=== PATIENT | male | born 1940 | race Caucasian/White ===

== ENCOUNTER 2019-03-30 10:18 | Outpatient (CLI) | payer MEDICARE ==
[2019-05-03] MEDS ORDERED: ENAL2.5T PO (13:06)
[2019-05-03] MEDS ORDERED: CALC1CAP8 PO (13:06)
[2019-05-03] MEDS ORDERED: ATOR40TA78 PO (13:06)
[2019-05-03] MEDS ORDERED: ASPI-650 PO (13:06)
[2019-05-03] MEDS ORDERED: FERR-46 PO (13:06)
[2019-05-03] MEDS ORDERED: DONE10TA7 PO (13:06)
[2019-06-01] MEDS ORDERED: ASPI81TA45 PO (10:58)
[2019-06-01] MEDS ORDERED: CLOP75TA PO (10:58)
[2019-06-01] MEDS ORDERED: ACET325T26 PO (10:58)
== END 2019-03-30 23:59 | disposition home or self-care (01) ==
LOC: CFH 10:18
DX: I08.8 Other rheumatic multiple valve diseases (principal); I11.9 Hypertensive heart disease without heart failure; E78.5 Hyperlipidemia, unspecified
CPT/HCPCS: 93306

== ENCOUNTER 2019-07-04 10:18 | Outpatient (CLI) | payer MEDICARE ==
[~2019-07-04 10:18] MED LIST: ACET325T26 PO; ASPI-650 PO; ASPI81TA45 PO; ATOR40TA78 PO; CALC1CAP8 PO; CHLORHEXIDINE 15 ML UDC ONE; CLOP75TA PO; DONE10TA7 PO; ENAL2.5T PO; FERR-46 PO
== END 2019-07-04 23:59 | disposition home or self-care (01) ==
LOC: CVU 10:18
PROVIDERS: ATTEND Internal Medicine Cardiovascular Disease
DX: I11.9 Hypertensive heart disease without heart failure (principal); I34.8 Other nonrheumatic mitral valve disorders; I51.7 Cardiomegaly; I72.9 Aneurysm of unspecified site; E78.5 Hyperlipidemia, unspecified
CPT/HCPCS: 93306

== ENCOUNTER → 2020-06-03 | Outpatient (CLI) | payer MEDICARE ==
[~2020-06-03] MED LIST changes: -CHLORHEXIDINE 15 ML UDC ONE; -ENAL2.5T PO; +ENAL2.5T8 PO
== END | disposition home or self-care (01) ==
LOC: CFH 10:43
PROVIDERS: ATTEND Internal Medicine Cardiovascular Disease
DX: I08.8 Other rheumatic multiple valve diseases (principal)
CPT/HCPCS: 93306